=== PATIENT | female | born 1965 | race Caucasian/White ===

== ENCOUNTER 2025-04-01 18:33 | Emergency (ER) | payer OTHER, SELFPAY ==
[2025-04-01 18:34] VITALS: BP 179/98; PULSE 121; RESP 14; TEMP 36.8; O2SAT 99; BMI 35.1
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
== END 2025-04-01 19:07 | disposition home or self-care (01) ==
PROVIDERS: Emergency Provider Emergency Medicine
DX: S16.1XXA Strain of muscle, fascia and tendon at neck level, initial encounter (principal); S29.019A Strain of muscle and tendon of unspecified wall of thorax, initial encounter; V89.2XXA Person injured in unspecified motor-vehicle accident, traffic, initial encounter
CPT/HCPCS: 99281